=== PATIENT | female | born 1950 | race Hispanic/Latino ===

== ENCOUNTER 2018-08-08 05:50 | Emergency (ER) | payer OTHER ==
[~2018-08-08] VITALS: Ht 157.5 cm; Wt 69.9 kg
[~2018-08-08 05:50] MED LIST: LISINOPRIL10 MG PO; METFORMIN HCL500 MG PO
--- NOTE | 2018-08-08 06:55 | NUR ---
l ear irrigated by md. no foreign body noted. small amount of dried blood noted in ear canal. rx for drops given to patient c dc paperwork.
== END 2018-08-08 06:55 | disposition home or self-care (01) ==
LOC: ER 05:50
DX: H92.02 Otalgia, left ear (principal); I10 Essential (primary) hypertension; E11.9 Type 2 diabetes mellitus without complications; E78.00 Pure hypercholesterolemia, unspecified; Z85.3 Personal history of malignant neoplasm of breast
CPT/HCPCS: 99282

== ENCOUNTER 2019-05-28 05:11 | Observation (INO) | payer OTHER ==
[~2019-05-28] VITALS: Ht 160 cm; Wt 68.0 kg
[~2019-05-28 05:11] MED LIST changes: +GLIMEPIRIDE2 MG PO; +MECLIZINE HCL12.5 MG PO; +PRAVASTATIN SOD40 MG PO
--- OUTSIDE RECORDS SUMMARY | 2019-05-28 05:15 | XMS REPORT ---
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 Allergies, Adverse Reactions, Alerts This patient has no known allergies or adverse reactions. Medications This patient has no known medications.
--- NOTE | 2019-05-28 07:15 | NUR ---
SPIRITUAL CARE - Pre-Surgery Assessment: Pt in bed. Pt's daughter at bedside. Pt reported supportive attention from family and friends. Intervention: I provided pastoral presence, hospitality, and sympathetic listening. I acquainted pt with availability of hvac engineer while hospitalized. Outcome: Pt expressed appreciation for visit. No need for follow up indicated at this time. YUNG Limalain Spiritual Care Department O: [phone]
[2019-05-28] MEDS ORDERED: BUPIVACAINE 0.25% 30ML SDV INJ ONE ×2 (07:26→07:27)
[2019-05-28] MEDS ORDERED: BACITRACIN ZINC 15 GM OINT ONE (07:26)
[2019-05-28] MEDS ORDERED: BACITRACIN 50,000 UNIT VIAL ONE (08:46)
[2019-05-28] MEDS ORDERED: BUPIVACAINE HCL 0.5% INJ 30 ML VIAL INJ ONE (10:31)
[2019-05-28] MEDS ORDERED: HYDROCODONE/APAP 7.5MG-325MG 1 EA TAB PO PRN (11:30)
[2019-05-28] MEDS ORDERED: HYDROMORPHONE 1MG/1ML INJ IV PRN (11:30)
[2019-05-28] MEDS ORDERED: HYDROMORPHONE 1MG/1ML INJ ONE (11:31)
[2019-05-28] MEDS: INSULIN REGULAR, HUMAN 100 UNIT/1 ML 3ML VIAL SQ SCH ×2 (12:00→16:33)
--- NOTE | 2019-05-28 12:09 | Operative Report ---
DATE OF PROCEDURE: 05/28/2019 SURGEON: Rufino Trejo MD PREOPERATIVE DIAGNOSES: Carcinoma of the right breast and diabetes mellitus. POSTOPERATIVE DIAGNOSES: Carcinoma of the right breast and diabetes mellitus. PROCEDURE PERFORMED: Right modified radical mastectomy. ANESTHESIA: General endotracheal. TURKEY CLEANER: Marco A Veloz. ESTIMATED BLOOD LOSS: Minimal. DRAINS: Two 10 mm flat Jaylon-Srinivasan drains, one to the pectoral region and the other one to the axillary region. COMPLICATIONS: None. ESTIMATED BLOOD LOSS: 100 mL. INDICATIONS AND FINDINGS: This is a pleasant 69-year-old female, who had undergone a biopsy of the right breast mass located 5 cm from the nipple at 8 o'clock. The biopsy revealed infiltrating ductal carcinoma. The mass was about 1.3 cm in greatest diameter. This mammographic abnormality was discovered in February of 2019. This patient had a history of breast cancer 18 years ago, treated with breast conservation, axillary dissection and radiotherapy. This most likely represents a new primary rather than a recurrence. She was admitted for a modified radical mastectomy. Preoperatively, the patient was evaluated by Oncology. She had all her lab work, which was normal. A PET scan revealed uptake in the area of the ascending colon. At this point, since surgery was no longer elective and she had been diagnosed with an abnormal mammogram back in February, we elected to proceed with the right modified radical mastectomy and then we will be as soon as possible performing a colonoscopy. This was discussed with her daughter. INTRAOPERATIVE FINDINGS: The patient had no palpable masses. There were several nodes that were between 1 and 1.5 cm present. The patient had significant scarring and fibrosis both in the breast and the axilla from the previous operation, but we performed an anatomic axillary dissection with identification and preservation of both the long thoracic as well as the thoracodorsal nerve. DESCRIPTION OF PROCEDURE: With the patient lying on the operative table in supine position after administration of general anesthesia, she was prepped and draped for a right modified radical mastectomy. An elliptical incision was made with the larger flap located in the lower part of the breast since the mass, which was not palpable, but it had been localized at about 8 o'clock on the right breast and about 5 cm from the nipple. We raised flaps with electrocautery superiorly, inferiorly, medially, and laterally. Then, we began the dissection by taking the breast off the chest wall and entering the interpectoral space, which was devoid of any palpable nodes. Then, we entered the axilla. We identified the axillary vein, the thoracodorsal nerve, and then finally the long thoracic nerve. The dissection remained superficial to the nerves inferior to the axillary vein until we removed the entire specimen en bloc. Bleeding points were cauterized and/or clipped. We then irrigated the operative field and after ascertaining there was no bleeding, we placed two Jaylon-Srinivasan drains, 10 mm each, one to drain the pectoral region and the other one to drain the axillary region and secured them with 2-0 silk in the inferior aspect of the flap on the right side. After we did that, we connected the wound. We closed the wound using 2-0 interrupted Vicryl stitches for the subcutaneous tissue and the skin was closed using john. The two 10 mm flat Jaylon-Srinivasan drains were now connected to suction. We placed a total of 15 mL of 1% Marcaine without epinephrine into the operative field, which were to be left. The drains will be connected to self-suction half an hour following the installation of the local anesthetic. Sterile dressing was applied. The patient tolerated the procedure well. The family was informed of the intraoperative findings as discussed with the patient's daughter the fact that she will be needing a colonoscopy in the near future. MD ROSALINDA Rodney/OBED /[id number]
[2019-05-28] MEDS: PANTOPRAZOLE 40 MG 10ML VIAL IV SCH (12:30)
--- NOTE | 2019-05-28 12:50 | NUR ---
Patient admitted to unit from PACU. Patient is post op right mastectomy. Dressing clean and dry. 2 ROYAL drains noted. Patient is AAOx3. Tuvaluan speaking only. Left forearm IV in place. IV fluids infusing. Patient ambulates on her own with assist. Lung duenas clear to auscultation. Bowel sounds present but hypoactive. Daughter at bedside at this time.
[2019-05-28 13:20] VITALS: BP 142/64
[2019-05-28] MEDS: SODIUM CHLORIDE 0.9% 1000ML 1,000 ML IV SCH (13:30)
[2019-05-28] MEDS: ONDANSETRON HCL INJ 2MG/ML 2ML 2 MG/ML VIAL IV PRN ×2 (13:30→17:41)
[2019-05-28 14:21] VITALS: BP 142/64
[2019-05-28] MEDS ORDERED: ACETAMINOPHEN 1000 MG/100 ML IV ONE (14:28)
[2019-05-28] MEDS ORDERED: CEFAZOLIN SOD 1 GM VIAL ONE (14:28)
[2019-05-28] MEDS ORDERED: DEXAMETHASONE SOD PHOS INJ 4 MG/ML VIAL ONE (14:28)
[2019-05-28] MEDS ORDERED: PROPOFOL IV EMULSION 10 MG/ML 20 ML VIAL ONE (14:28)
[2019-05-28] MEDS ORDERED: SEVOFLURANE INHAL SOLN 250 ML PEN BTL ONE (14:28)
[2019-05-28] MEDS ORDERED: LIDOCAINE HCL 2% LOCAL INJ 5 ML SDV VIAL INJ ONE (14:28)
[2019-05-28] MEDS ORDERED: ONDANSETRON HCL INJ 2MG/ML 2ML 2 MG/ML VIAL ONE (14:28)
[2019-05-28] MEDS ORDERED: FENTANYL CITRATE/PF 100MCG/2 ML INJ ONE (14:34)
--- NOTE | 2019-05-28 15:00 | NUR ---
Patient assisted to bathroom and voided at this time.
[2019-05-28] MEDS: CEFAZOLIN SOD 1 GM/NS 50ML 50 ML IV SCH (16:32)
[2019-05-28 16:59] VITALS: BP 117/57
[2019-05-28] MEDS ORDERED: GLIMEPIRIDE 2 MG TAB PO ONE (19:15)
[2019-05-28] MEDS ORDERED: METFORMIN HCL 850 MG TAB PO ONE (19:15)
[2019-05-28 20:18] VITALS: BP 117/57
[2019-05-28 21:47] VITALS: BP 117/57
[2019-05-29 00:31] VITALS: BP 111/59
[2019-05-29] MEDS: SODIUM CHLORIDE 0.9% 1000ML 1,000 ML IV SCH ×2 (00:36→08:30)
[2019-05-29] MEDS: INSULIN REGULAR, HUMAN 100 UNIT/1 ML 3ML VIAL SQ SCH ×3 (00:45→12:19)
[2019-05-29] MEDS: CEFAZOLIN SOD 1 GM/NS 50ML 50 ML IV SCH (00:46)
[2019-05-29 04:33] VITALS: BP 98/55
[2019-05-29 05:19] LABS: BASOPHILS % 0.1 % (0.0-1.0); EOSINOPHILS % 0.1 % (0.0-6.0); HEMATOCRIT 31.6 % (34.2-44.1); HEMOGLOBIN 10.9 g/dL (12.0-16.0); LYMPHOCYTES # (AUTO) 2.2 (1.0-3.2); LYMPHOCYTES % 22.1 % (18.0-39.1); MEAN CORPUSCULAR HEMOGLOBIN 30.8 pg (28-32); MEAN CORPUSCULAR HGB CONC 34.5 g/dL (31-35); MEAN CORPUSCULAR VOLUME 89.3 fL (81-99); MONOCYTES # (AUTO) 0.8 (0.2-0.8); MONOCYTES % 8.4 % (4.4-11.3); NEUTROPHILS # (AUTO) 6.7 (2.1-6.9); NEUTROPHILS % 68.8 % (38.7-80.0); PLATELET COUNT 184 x10e3/uL (140-360); RED BLOOD COUNT 3.54 x10e6/uL (3.6-5.1); RED CELL DISTRIBUTION WIDTH 11.9 % (11.7-14.4)
[2019-05-29 05:43] LABS: ANION GAP 12.8 mmol/L (8-16); BLOOD UREA NITROGEN 16 mg/dL (7-26); BUN/CREATININE RATIO 24 (6-25); CALCIUM 8.5 mg/dL (8.4-10.2); CARBON DIOXIDE 24 mmol/L (22-29); CHLORIDE 105 mmol/L (98-107); CREATININE, SERUM 0.66 mg/dL (0.57-1.11); EST GLOMERULAR FILTRATION RATE > 60 ML/MIN (60-); GLUCOSE 140 mg/dL (74-118); POTASSIUM 3.8 mmol/L (3.5-5.1); SODIUM 138 mmol/L (136-145)
[2019-05-29] MEDS ORDERED: GLIMEPIRIDE 2 MG TAB PO SCH (08:00)
[2019-05-29] MEDS ORDERED: METFORMIN HCL 850 MG TAB PO SCH (08:00)
[2019-05-29 08:07] VITALS: BP 122/58
[2019-05-29 08:44] VITALS: BP 122/58
[2019-05-29] MEDS ORDERED: LISINOPRIL 20 MG TAB PO SCH (09:00)
[2019-05-29] MEDS ORDERED: METFORMIN HCL 500 MG TAB PO SCH (09:00)
[2019-05-29 11:55] VITALS: BP 119/58
[2019-05-29] MEDS: PANTOPRAZOLE 40 MG 10ML VIAL IV SCH (12:13)
--- NOTE | 2019-05-29 12:16 | NUR ---
PT TOLERATED LUNCH, DENIES "UNLESS MOVING ALOT", DENIES NEED FOR PAIN MEDICATION AT THIS TIME, STANDBY ASSIST TO BR, VOIDING WITHOUT DIFFICULTY, STANDBY ASSIST, BACK TO BED, CALL LIGHT WITHIN REACH
[2019-05-29] MEDS ORDERED: LORTAB PO (13:56)
--- NOTE | 2019-05-29 14:22 | NUR ---
MD Lorena MONTES DE OCA INTO SEE PT, DISCUSSED DISCHARGE INSTRUCTIONS, VERBALIZED UNDERSTANDING, DEMONSTRATED HOW TO EMPTY ROYAL DRAINS, DRESSING CDI, PT WHEELED OFF UNIT VIA WC FOR DISCHARGE, NO CHANGE IN CONDITION
== END 2019-05-29 14:18 | disposition home or self-care (01) ==
LOC: OR 05:11 → MED/SURG 11:30
PROVIDERS: ADMIT Surgery; ATTEND Surgery
DX: C50.911 Malignant neoplasm of unspecified site of right female breast (principal); E11.9 Type 2 diabetes mellitus without complications; E78.5 Hyperlipidemia, unspecified
CPT/HCPCS: 19307; 36415 ×2; 80048; 82948 ×2; 85025; 88305; 88309; 88342; C9113; G0378 ×2; J0131; J0690 ×3; J1100; J1170; J1817; J2001; J2405; J2704; J3010; J7030 ×2

== ENCOUNTER → 2019-06-25 | Day surgery (SDC) | payer MEDICARE ==
[~2019-06-25] MED LIST changes: +FENTANYL CITRATE/PF 100MCG/2 ML INJ ONE; +LIDOCAINE HCL 2% LOCAL INJ 5 ML SDV VIAL INJ ONE; +LORTAB PO; +PROPOFOL IV EMULSION 10 MG/ML 20 ML VIAL ONE
--- NOTE | 2019-06-25 07:10 | NUR ---
SPIRITUAL CARE - Pre-Surgery Assessment: Pt in bed. Pt's daughter at bedside. Pt reported supportive attention from family and friends. Intervention: I provided pastoral presence, hospitality, and sympathetic listening. I acquainted pt with availability of bar pointer while hospitalized. Outcome: Pt expressed appreciation for visit. No need for follow up indicated at this time. YUNG Limalain Spiritual Care Department O: [phone]
[2019-06-25 10:55] VITALS: BP 124/70
== END | disposition home or self-care (01) ==
LOC: OR 05:48
PROVIDERS: ATTEND Surgery
DX: K63.89 Other specified diseases of intestine (principal); K57.30 Diverticulosis of large intestine without perforation or abscess without bleeding; E11.9 Type 2 diabetes mellitus without complications; I10 Essential (primary) hypertension; F41.9 Anxiety disorder, unspecified; Z91.041 Radiographic dye allergy status; Z79.84 Long term (current) use of oral hypoglycemic drugs; Z85.3 Personal history of malignant neoplasm of breast
CPT/HCPCS: 45378; J2001; J2704; J3010

== ENCOUNTER → 2019-07-08 | Outpatient (CLI) | payer MEDICARE ==
[~2019-07-08] MED LIST changes: +DIATRIZOATE MEGL/DIATRIZOA SOD 30 ML BTL PO ONE; -FENTANYL CITRATE/PF 100MCG/2 ML INJ ONE; -LIDOCAINE HCL 2% LOCAL INJ 5 ML SDV VIAL INJ ONE; -PROPOFOL IV EMULSION 10 MG/ML 20 ML VIAL ONE
--- NOTE | 2019-07-08 14:40 | Diagnostic Imaging Report ---
EXAMINATION: CT of the abdomen and pelvis without contrast. TECHNIQUE: Spiral CT images of the abdomen and pelvis were performed from the lung bases to the lesser trochanters. No intravenous contrast was given per iodinated contrast allergy. Oral Gastrografin was administered Coronal and sagittal reformatted images were obtained. COMPARISON: None. CLINICAL HISTORY:Right colon mass DISCUSSION: ABSENCE OF INTRAVENOUS CONTRAST DECREASES SENSITIVITY FOR DETECTION OF FOCAL LESIONS AND VASCULAR PATHOLOGY. ABDOMEN/PELVIS: LOWER THORAX: Postsurgical changes of the right breast/chest wall. Lung bases are unremarkable. Atherosclerotic coronary artery calcifications. HEPATOBILIARY:No focal hepatic lesion or intrahepatic biliary ductal dilatation. The gallbladder has been removed. SPLEEN: No splenomegaly or focal splenic lesion. PANCREAS: No focal masses or ductal dilatation. ADRENALS: No adrenal nodules. KIDNEYS/URETERS: No hydronephrosis, calculi, or solid or cystic mass lesions. PELVIC ORGANS/BLADDER: The urinary bladder is poorly distended. Uterus is neutral in position. No adnexal mass. PERITONEUM/RETROPERITONEUM: No ascites or pneumoperitoneum. LYMPH NODES: No pelvic sidewall, retroperitoneal, or mesenteric lymphadenopathy. VESSELS: Limited evaluation in the absence of intravenous contrast. The abdominal aorta is nonaneurysmal. 6 mm suspected peripherally calcified aneurysm of the right renal artery seen on series 2 image 32. GI TRACT: The large bowel shows no distention or wall thickening. No discrete right colon mass is appreciated. There are scattered diverticula predominantly along the descending and sigmoid colon without evidence of diverticulitis. The appendix is normal. There is no small bowel dilatation to suggest obstruction. BONES AND SOFT TISSUES: No osseous destructive lesions. Multilevel degenerative disc changes of the lumbar spine. Postsurgical changes of the right breast as discussed above. IMPRESSION: The clinically diagnosed right colon mass is not evident by CT. No findings of abdominal or pelvic metastatic disease, though the examination is limited in the absence of intravenous contrast. Contrast-enhanced CT abdomen and pelvis after premedication for iodinated contrast allergy would be optimal. 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 This finding may be assessed for stability by CT angiography of the abdomen, (again with premedication for iodinated contrast allergy) in one year. Postoperative changes of the right breast and chest wall. Signed by: Dr. Frederick Maldonado M.D. on 07/08/2019 2:36 PM
== END ==
LOC: CT 12:36
PROVIDERS: ATTEND Surgery
DX: R19.09 Other intra-abdominal and pelvic swelling, mass and lump (principal); I72.2 Aneurysm of renal artery
CPT/HCPCS: 74176